=== PATIENT | male | born 1955 | race Caucasian/White ===

== ENCOUNTER 2021-05-10 07:22 | Emergency (ER) | payer OTHER ==
--- OUTSIDE RECORDS SUMMARY | 2021-05-10 07:24 | XMS REPORT | Continuity of Care Document ---
:1955 Author Organization [facility] t Address [address] Burch [address] [place] [id number] Care Team Providers Name Role Phone Unavailable Unavailable Unavailable Problems This patient has no known problems. Allergies, Adverse Reactions, Alerts This patient has no known allergies or adverse reactions. Medications This patient has no known medications. Procedures This patient has no known procedures. Results This patient has no known results.
[2021-05-10] MEDS ORDERED: DOXYCYCLINE 100 MG CAP PO ONE (08:52)
[2021-05-10] MEDS ORDERED: SMZ./TMP. 800/160 MG TABLET ONE (08:52)
[2021-05-10 09:03] LABS: Basophils % 0.4 % (0-1.3); Hematocrit 43.9 % (39.6-49.0); Lymphocytes % 8.9 % (15.3-44.8); RBC Red Blood Cell Count 4.81 M/uL (4.33-5.43)
[2021-05-10 09:08] LABS: Potassium 3.6 mmol/L (3.5-5.1)
--- NOTE | 2021-05-10 09:18 | RAD REPORT ---
EXAM DESCRIPTION: RAD -Hand Left 3 View - 05/10/2021 8:50 am CLINICAL HISTORY: Left hand pain status post injury FINDINGS: No fracture or dislocation is seen. A radiopaque foreign body is not seen. No bony destructive lesion visualized
--- NOTE | 2021-05-10 09:21 | EDPHYS ---
Physician Documentation [facility] Name: Max Bañuelos Age: 66 yrs Sex: Male : 1955 Arrival Date: 05/10/2021 Time: 07:25 Bed Waiting Private MD: ED Physician Hilda Perez HPI: 05/10 14:40 This 66 yrs old Male presents to ER via Ambulatory with complaints of Hand kb Swelling, Fever. 14:41 The patient presents with cellulitis of the dorsum of left hand. Description: kb erythematous, swollen, warm. Onset: The symptoms/episode began/occurred last night. Possible cause(s): crab claw puncture. Associated signs and symptoms: Pertinent positives: erythema, swelling. Modifying factors: the symptoms are alleviated by nothing, the symptoms are aggravated by nothing. Severity of symptoms: At their worst the symptoms were moderate, in the emergency department the symptoms are unchanged. The patient has not experienced similar symptoms in the past. The patient has not recently seen a physician. Pt reports he was cleaning crab yesterday and got poked on the top of the left hand. Reports redness and swelling started last night. Worse this morning Reports fever this morning as well. Historical: - Allergies: 08:18 No Known Allergies; ss - Home Meds: 08:18 Lisinopril Oral [Active]; metoprolol tartrate 50 mg Oral tab [Active]; ss - PMHx: 08:18 High Cholesterol; Hypertensive disorder; ss - Immunization history:: Adult Immunizations up to date, Last tetanus immunization: up to date. - Social history:: Smoking status: Patient reports use of chewing tobacco. ROS: 14:36 Respiratory: Negative for shortness of breath, cough, wheezing, and pleuritic chest kb pain. 14:36 Constitutional: Positive for chills, fever, Negative for body aches, fatigue, malaise, poor PO intake, weight loss. 14:36 Skin: Positive for cellulitis, of the dorsum of left hand. 14:36 All other systems are negative. Exam: 14:39 Constitutional: This is a well developed, well nourished patient who is awake, alert, kb and in no acute distress. Head/Face: Normocephalic, atraumatic. ENT: Moist Mucous membranes Respiratory: Respirations even and unlabored. No increased work of breathing, no retractions or nasal flaring. MS/ Extremity: Pulses equal, no cyanosis. Neurovascular intact. Full, normal range of motion. Neuro: Awake and alert, GCS 15, oriented to person, place, time, and situation. Moves all extremities. Normal gait. Psych: Awake, alert, with orientation to person, place and time. Behavior, mood, and affect are within normal limits. 14:39 Skin: cellulitis, that is moderate, on the dorsum of left hand. Vital Signs: 08:17 BP 136 / 91; Pulse 81; Resp 16; Temp 99.2(TE); Pulse Ox 99% on R/A; Weight 87.54 kg; ss Height 5 ft. 8 in. (172.72 cm); Pain 7/10; 08:17 Body Mass Index 29.35 (87.54 kg, 172.72 cm) ss MDM: 08:21 Patient medically screened. kb 14:35 Data reviewed: vital signs, nurses notes. Data interpreted: Pulse oximetry: on room air kb is 99 %. Interpretation: normal. Counseling: I had a detailed discussion with the patient and/or guardian regarding: the historical points, exam findings, and any diagnostic results supporting the discharge/admit diagnosis, lab results, radiology results, the need for outpatient follow up, a family practitioner, to return to the emergency department if symptoms worsen or persist or if there are any questions or concerns that arise at home. 14:46 ED course: Pt educated on oral antibiotics and importance of completing entire course. kb Educated to return for worsening symptoms for possible IV antibiotics. Pt nontoxic in appearance. 05/10 08:20 Order name: CBC with Diff; Complete Time: 09:18 05/10 08:20 Order name: BMP; Complete Time: 09:13 05/10 08:20 Order name: XRAY Hand LEFT 3 View; Complete Time: 09:19 05/10 08:20 Order name: Blood Culture Adult (2) ss Administered Medications: 08:50 Drug: Bactrim (trimethoprim-sulfamethoxazole) (160 mg-800 mg (DS) 1 tablet Route: PO; ss 09:52 Follow up: Response: Medication administered at discharge. ss 08:50 Drug: Doxycycline 100 mg Route: PO; ss 09:52 Follow up: Response: No adverse reaction; Medication administered at discharge. ss Disposition Summary: 05/10/21 09:20 Discharge Ordered Location: Home kb Condition: Stable kb Diagnosis - Cellulitis of left upper limb - hand kb Followup: kb - With: Emergency Department - When: As needed - Reason: Worsening of condition Followup: kb - With: Private Physician - When: 2 - 3 days - Reason: Recheck today's complaints, Continuance of care, Re-evaluation by your physician Discharge Instructions: - Discharge Summary Sheet kb - Cellulitis, Adult, [id number] kb Forms: - Medication Reconciliation Form kb - Thank You Letter kb - Antibiotic Education kb - Prescription Opioid Use kb - Work release form eb Prescriptions: - Doxycycline Hyclate 100 mg Oral Tablet - take 1 tablet by ORAL route once daily; 10 tablet; Refills: 0, Product kb Selection Permitted - Bactrim DS 800-160 mg Oral Tablet - take 1 tablet by ORAL route every 12 hours for 10 days; 20 tablet; Refills: 0, kb Product Selection Permitted Addendum: 05/11/2021 20:33 Co-signature as Attending Physician, Hilda maxwell a2 Signatures: Dispatcher [employer] Wilma Croft, Diya Hawkins, MYAH RN Hilda Perez MD MD ma2
--- NOTE | 2021-05-10 09:21 | ER ---
Nurse's Notes [facility] Name: Max Bañuelos Age: 66 yrs Sex: Male : 1955 Arrival Date: 05/10/2021 Time: 07:25 Bed Waiting Private MD: Diagnosis: Cellulitis of left upper limb-hand Presentation: 05/10 08:17 Chief complaint: Patient states: pain, redness and swelling to L hand that began ss yesterday, worse this morning after he a crab horn poked him. Coronavirus screen: Vaccine status: Client denies travel out of the [place] in the last 14 days. Coronavirus screen: Vaccine status: Patient reports receiving the 2nd dose of the covid vaccine. Ebola Screen: Patient denies exposure to infectious person. Patient denies travel to an Ebola-affected area in the 21 days before illness onset. Initial Sepsis Screen: Does the patient meet any 2 criteria? No. Patient's initial sepsis screen is negative. Does the patient have a suspected source of infection? No. Patient's initial sepsis screen is negative. Risk Assessment: Do you want to hurt yourself or someone else? Patient reports no desire to harm self or others. Onset of symptoms was May 10, 2021. 08:17 Method Of Arrival: Ambulatory 08:17 Acuity: ALICIA 3 ss Historical: - Allergies: 08:18 No Known Allergies; ss - Home Meds: 08:18 Lisinopril Oral [Active]; metoprolol tartrate 50 mg Oral tab [Active]; ss - PMHx: 08:18 High Cholesterol; Hypertensive disorder; ss - Immunization history:: Adult Immunizations up to date, Last tetanus immunization: up to date. - Social history:: Smoking status: Patient reports use of chewing tobacco. Vital Signs: 08:17 BP 136 / 91; Pulse 81; Resp 16; Temp 99.2(TE); Pulse Ox 99% on R/A; Weight 87.54 kg; ss Height 5 ft. 8 in. (172.72 cm); Pain 7/10; 08:17 Body Mass Index 29.35 (87.54 kg, 172.72 cm) ss ED Course: 07:25 Patient arrived in ED. ds1 08:18 Triage completed. ss 08:18 Arm band placed on right wrist. ss 08:21 Wilma Andrade FNP-C is [facility]. kb 08:21 Hilda Perez MD is Attending Physician. kb 08:34 Initial lab(s) drawn, by me, sent to lab. First set of blood cultures drawn by me. dh3 Inserted saline lock: 20 gauge in right forearm, using aseptic technique. Blood collected. 08:38 Second set of blood cultures drawn by me. dh3 08:51 XRAY Hand LEFT 3 View In Process Unspecified. EDMS 09:52 No provider procedures requiring assistance completed. IV discontinued, intact, ss bleeding controlled, No redness/swelling at site. Pressure dressing applied. Administered Medications: 08:50 Drug: Bactrim (trimethoprim-sulfamethoxazole) (160 mg-800 mg (DS) 1 tablet Route: PO; ss 09:52 Follow up: Response: Medication administered at discharge. ss 08:50 Drug: Doxycycline 100 mg Route: PO; ss 09:52 Follow up: Response: No adverse reaction; Medication administered at discharge. ss Outcome: 09:20 Discharge ordered by . kb 09:52 Discharged to home ambulatory. ss 09:52 Condition: good 09:52 Discharge instructions given to patient, Instructed on discharge instructions, follow up and referral plans. medication usage, Demonstrated understanding of instructions, follow-up care, medications, Prescriptions given X 2. 09:52 Patient left the ED. ss Signatures: Dispatcher [employer] EDMS Wilma Andrade FNP-C FNP-Anne Brand ds1 Diya Frank RN RN Rebecca Boyd 3
[2021-05-10 09:58] VITALS: BP 136/91; TEMP 99.2; O2SAT 99
== END 2021-05-10 09:52 | disposition home or self-care (01) ==
LOC: ER 07:22
DX: L03.114 Cellulitis of left upper limb (principal); I10 Essential (primary) hypertension; E78.00 Pure hypercholesterolemia, unspecified; F17.220 Nicotine dependence, chewing tobacco, uncomplicated
CPT/HCPCS: 36415; 80048; 85025; 87040; 99284

== ENCOUNTER 2021-05-22 16:59 | Emergency (ER) | payer OTHER ==
--- OUTSIDE RECORDS SUMMARY | 2021-05-22 17:02 | XMS REPORT | Continuity of Care Document ---
:1955 Author Organization [facility] t Address [address] [place] [id number] Care Team Providers Name Role Phone Unavailable Unavailable Unavailable Problems This patient has no known problems. Allergies, Adverse Reactions, Alerts This patient has no known allergies or adverse reactions. Medications This patient has no known medications. Procedures This patient has no known procedures. Results This patient has no known results.
[2021-05-22 19:40] LABS: Absolute Lymphocytes (CBC) 0.9 K/uL (0.7-4.9); Basophils % 0.8 % (0-1.3); Hematocrit 45.8 % (39.6-49.0); Lymphocytes % 16.1 % (15.3-44.8); MPV 6.9 fL (7.6-11.3); RBC Red Blood Cell Count 4.97 M/uL (4.33-5.43)
[2021-05-22 19:42] LABS: Albumin 4.4 g/dL (3.4-5.0); Bilirubin Total 0.9 mg/dL (0.2-1.0); Potassium 4.3 mmol/L (3.5-5.1); Protein, Total 8.2 g/dL (6.4-8.2)
--- NOTE | 2021-05-22 20:08 | RAD REPORT ---
EXAM DESCRIPTION: RAD - Chest Single View - 05/22/2021 7:34 pm CLINICAL HISTORY: FEVER COMPARISON: None TECHNIQUE: AP portable chest image was obtained 05/22/2021 7:34 pm . FINDINGS: Lung volumes are low but no focal mass or consolidations seen. Interstitial pattern is not outside of normal range for low lung volume study. Heart and vasculature are normal. No measurable p leural effusion and no pneumothorax. No acute bony abnormality seen. No acute aortic findings suspect ed. IMPRESSION: No acute cardiopulmonary process.
--- NOTE | 2021-05-22 21:13 | EDPHYS ---
Physician Documentation [facility] Name: Max Bañuelos Age: 66 yrs Sex: Male : 1955 Arrival Date: 05/22/2021 Time: 17:01 Bed DX3 Private MD: ED Physician Anastacio Thompson HPI: 05/22 18:40 This 66 yrs old Male presents to ER via Ambulatory with complaints of Fever, jmm Hand Pain. 18:40 The patient reports fever, that was measured at 100.5 degrees Fahrenheit. Onset: The jmm symptoms/episode began/occurred today. Modifying factors: there are no obvious modifying factors. Associated signs and symptoms: Pertinent positives: chills. This is a 66-year-old male with history of hyperlipidemia and hypertension the presents emerged part with complaints of a fever of 100.5 today. Patient was concerned because he was recently given oral antibiotics for a crab puncture to his left hand. Patient states his hand has improved since his course of antibiotics. Patient denies cough, shortness of breath, dysuria, abdominal pain, chest pain, vomiting, diarrhea.. Historical: - Allergies: 18:31 No Known Allergies; iw - Home Meds: 18:31 metoprolol tartrate 50 mg Oral tab [Active]; lisinopril Oral [Active]; iw - PMHx: 18:31 High Cholesterol; Hypertensive disorder; iw - PSHx: 18:31 None; iw - Immunization history:: Client reports receiving the 2nd dose of the Covid vaccine. - Social history:: Smoking status: Patient denies any tobacco usage or history of. ROS: 18:40 Cardiovascular: Negative for chest pain, palpitations, and edema, Respiratory: Negative jmm for shortness of breath, cough, wheezing, and pleuritic chest pain, Abdomen/GI: Negative for abdominal pain, nausea, vomiting, diarrhea, and constipation, Back: Negative for injury and pain, MS/Extremity: Negative for injury and deformity. 18:40 Constitutional: Positive for fever. 18:40 All other systems are negative. Exam: 18:40 Constitutional: This is a well developed, well nourished patient who is awake, alert, jmm and in no acute distress. Head/Face: atraumatic. Eyes: EOMI, no conjunctival erythema appreciated ENT: Moist Mucus Membranes Neck: Trachea midline, Supple Chest/axilla: Normal chest wall appearance and motion. Cardiovascular: Regular rate and rhythm. No edema appreciated Respiratory: Normal respirations, no respiratory distress appreciated Abdomen/GI: Non distended, soft Back: Normal ROM 18:40 Skin: Mild erythema noted to the left hand, nontender to palpation, hand is cool. 18:40 Neuro: Orientation: is normal, Mentation: is normal, Memory: is normal. 18:40 Psych: Behavior/mood is pleasant, cooperative. Vital Signs: 18:29 BP 120 / 85; Pulse 84; Resp 16; Temp 98.0; Pulse Ox 100% on R/A; Weight 84.37 kg; iw Height 5 ft. 8 in. (172.72 cm); 18:29 Body Mass Index 28.28 (84.37 kg, 172.72 cm) iw MDM: 18:38 Patient medically screened. [place] 21:09 Data reviewed: vital signs, nurses notes. Counseling: I had a detailed discussion with balwinder the patient and/or guardian regarding: the historical points, exam findings, and any diagnostic results supporting the discharge/admit diagnosis, lab results, radiology results, the need for outpatient follow up, to return to the emergency department if symptoms worsen or persist or if there are any questions or concerns that arise at home. ED course: Patient is alert nontoxic in appearance in the ED. No signs of respiratory distress or sepsis. Patient advised to follow-up PCP and otherwise given strict return precautions. Patient understood and agrees plan of care.. 05/22 18:40 Order name: CBC with Diff; Complete Time: 19:50 [place] 05/22 18:40 Order name: CMP; Complete Time: 19:50 [place] 05/22 18:40 Order name: Procalcitonin; Complete Time: 20:13 [place] 05/22 18:40 Order name: Lactate; Complete Time: 20:37 [place] 05/22 18:40 Order name: Blood Culture Adult (2) [place] 05/22 18:40 Order name: Flu; Complete Time: 20:02 [place] 05/22 18:40 Order name: Saline Lock; Complete Time: 19:17 [place] 05/22 18:40 Order name: Strep; Complete Time: 20:02 [place] 05/22 18:40 Order name: Chest Single View XRAY; Complete Time: 20:13 [place] 05/22 20:16 Order name: Throat Culture EDUT 05/22 20:46 Order name: SARS-COV-2 RT PCR; Complete Time: 20:46 EDMS Administered Medications: No medications were administered Disposition: 22:08 Co-signature as Attending Physician, Anastacio Thompson MD I agree with the assessment and kdr plan of care. Disposition Summary: 05/22/21 21:11 Discharge Ordered Location: Home [place] Condition: Stable [place] Diagnosis - Fever, unspecified [place] Followup: jm - With: Private Physician - When: 2 - 3 days - Reason: Recheck today's complaints, Continuance of care, Re-evaluation by your physician Discharge Instructions: - Discharge Summary Sheet [place] - Fever, Adult [place] Forms: - Medication Reconciliation Form [place] - Thank You Letter [place] - Antibiotic Education [place] - Prescription Opioid Use [place] Signatures: Dispatcher [employer] [facility] Anastacio Thompson MD MD [facility] Jaiden Potts PA PA [place] Laura Lopez, RN RN iw Corrections: (The following items were deleted from the chart) 19:30 18:41 CORONAVIRUS+MR.LAB.BRZ ordered. EDUT EDMS 21:25 18:40 Urine Dipstick-Ancillary ordered. [place] iw
--- NOTE | 2021-05-22 21:13 | ER ---
Nurse's Notes [facility] Name: Max Bañuelos Age: 66 yrs Sex: Male : 1955 Arrival Date: 05/22/2021 Time: 17:01 Bed DX3 Private MD: Diagnosis: Fever, unspecified Presentation: 05/22 18:29 Chief complaint: Patient states: was seen here at end of April for cellulitis in left iw hand from puncture wound from a crab, finish his abx , today started running fever 100.5, is having chills with fever, states his hand looks much better than it did in April. Coronavirus screen: Client presents with at least one sign or symptom that may indicate coronavirus-19. Ebola Screen: Patient negative for fever greater than or equal to 101.5 degrees Fahrenheit, and additional compatible Ebola Virus Disease symptoms Patient denies exposure to infectious person. Patient denies travel to an Ebola-affected area in the 21 days before illness onset. No symptoms or risks identified at this time. Initial Sepsis Screen: Does the patient meet any 2 criteria? No. Patient's initial sepsis screen is negative. Does the patient have a suspected source of infection? No. Patient's initial sepsis screen is negative. Risk Assessment: Do you want to hurt yourself or someone else? Patient reports no desire to harm self or others. Onset of symptoms was May 22, 2021. 18:29 Method Of Arrival: Ambulatory iw 18:29 Acuity: ALICIA 4 iw 18:32 Note had a COVID test today and was negative. iw 18:38 Acuity: ALICIA 3 iw Triage Assessment: 21:00 General: Appears in no apparent distress. Behavior is calm, cooperative. iw Historical: - Allergies: 18:31 No Known Allergies; iw - Home Meds: 18:31 metoprolol tartrate 50 mg Oral tab [Active]; lisinopril Oral [Active]; iw - PMHx: 18:31 High Cholesterol; Hypertensive disorder; iw - PSHx: 18:31 None; iw - Immunization history:: Client reports receiving the 2nd dose of the Covid vaccine. - Social history:: Smoking status: Patient denies any tobacco usage or history of. Screenin:25 Abuse screen: Denies threats or abuse. Denies injuries from another. Nutritional iw screening: No deficits noted. Tuberculosis screening: No symptoms or risk factors identified. Fall Risk IV access (20 points). Assessment: 18:30 General: Appears in no apparent distress. Behavior is calm, cooperative. Pain: Denies iw pain. Neuro: Level of Consciousness is awake, alert, obeys commands, Oriented to person, place, time, situation, Moves all extremities. Full function. Derm: Skin is intact, is healthy with good turgor. 21:25 Reassessment: Patient appears in no apparent distress at this time. Patient and/or iw family updated on plan of care and expected duration. Pain level reassessed. Patient is alert, oriented x 3, equal unlabored respirations, skin warm/dry/pink. Vital Signs: 18:29 BP 120 / 85; Pulse 84; Resp 16; Temp 98.0; Pulse Ox 100% on R/A; Weight 84.37 kg; iw Height 5 ft. 8 in. (172.72 cm); 18:29 Body Mass Index 28.28 (84.37 kg, 172.72 cm) ED Course: 17:01 Patient arrived in ED. ds1 18:31 Triage completed. iw 18:32 Arm band placed on. iw 18:35 Jaiden Potts PA is PHCP. [facility] 18:35 Anastacio Thompson MD is Attending Physician. [facility] 19:15 Initial lab(s) drawn, by pr, sent to lab. First set of blood cultures drawn COVID swab 5 sent to lab. Flu and/or RSV swab sent to lab. Strep swab sent to lab. Inserted saline lock: 22 gauge in right antecubital area, using aseptic technique. Blood collected. 19:17 Flu Sent. 5 19:17 Strep Sent. 5 19:17 Blood Culture Adult (2) Sent. 5 19:17 Procalcitonin Sent. 5 19:17 Lactate Sent. 5 19:17 CMP Sent. 5 19:17 CBC with Diff Sent. [facility] 19:19 Patient has correct armband on for positive identification. Bed in low position. 5 19:34 Chest Single View XRAY In Process Unspecified. EDMS 21:25 Laura Lopez, RN is Primary Nurse. iw 21:33 No provider procedures requiring assistance completed. IV discontinued, intact, iw bleeding controlled, No redness/swelling at site. Pressure dressing applied. Administered Medications: No medications were administered Outcome: 21:11 Discharge ordered by . balwinder 21:33 Discharged to home ambulatory. 21:33 Condition: good 21:33 Discharge instructions given to patient, Instructed on discharge instructions, follow up and referral plans. Demonstrated understanding of instructions, follow-up care. 21:34 Patient left the ED. bb Signatures: Dispatcher [employer] EDMS Jaiden Potts PA PA jmm [place], Demi ds1 Valerie Velez RN RN Laura Tafoya RN RN iw Martinez, Maria [facility] Corrections: (The following items were deleted from the chart) 19:30 19:17 CORONAVIRUS+MR.LAB.BRZ drawn and sent. [address]
[2021-05-22 21:40] VITALS: BP 120/85; TEMP 98; O2SAT 100
== END 2021-05-22 21:34 | disposition home or self-care (01) ==
LOC: ER 16:59
DX: R50.9 Fever, unspecified (principal); I10 Essential (primary) hypertension; E78.00 Pure hypercholesterolemia, unspecified; Z20.822 Contact with and (suspected) exposure to COVID-19
CPT/HCPCS: 87040 ×2; 87070; 85025; 36415; 87081; 83605; 80053; 84145; 87804 ×2; 71045; 99283; U0003